=== PATIENT | male | born 1970 | race Caucasian/White ===

== ENCOUNTER 2021-03-20 09:33 | Emergency (ER) | payer OTHER ==
[~2021-03-20] VITALS: Ht 175.3 cm; Wt 86.2 kg
[2021-03-20] MEDS ORDERED: JULUCA 50-25 M1 EACH PO (09:47)
[2021-03-20] MEDS ORDERED: COZAAR50 MG PO (09:48)
[2021-03-20] MEDS ORDERED: MEDROLPACK PO (13:13)
[2021-03-20] MEDS ORDERED: ZYRTEC10 M3 PO (13:13)
[2021-03-20] MEDS ORDERED: BENADRYL25 MG PO (13:13)
== END 2021-03-20 13:28 | disposition home or self-care (01) ==
LOC: ER 09:33
DX: T78.40XA Allergy, unspecified, initial encounter (principal)